=== PATIENT | female | born 1950 | race Caucasian/White ===

== ENCOUNTER 2023-03-22 14:11 | Inpatient (IN) ==
[2023-03-22] MEDS ORDERED: IOPAMIDOL 100 ML BOTTLE IV ONE (14:12)
[2023-03-22] MEDS ORDERED: IPRATROPIUM/ALBUTEROL 3 ML AMPUL.NEB NEB ONE (14:25)
[2023-03-22 15:07] LABS: Basophils # (Auto) 0.01 K/mcL (0.00-0.30); Basophils % (Auto) 0.2 % (0.0-2.0); Eosinophils # (Auto) 0.01 K/mcL (0.00-0.70); Eosinophils % (Auto) 0.2 % (0.0-7.0); Hematocrit 42.7 % (34.1-44.9); Hemoglobin 13.9 g/dL (11.2-15.7); Lymphocytes # (Auto) 0.68 K/mcL (1.50-4.80); Lymphocytes % (Auto) 10.6 % (15.5-49.0); Mean Cell Volume 100.2 fL (80.0-100.0); Mean Corpuscular HGB Conc 32.6 g/dL (31.0-36.0); Mean Platelet Volume 10.2 fL (8.8-12.5); Monocytes # (Auto) 0.12 K/mcL (0.10-0.90); Monocytes % (Auto) 1.9 % (1.0-12.0); Neutrophils % (Auto) 86.2 % (38.0-78.0); Platelet Count 291 K/mcL (140-440); RBC 4.26 M/mcL (3.59-5.38); Red Cell Distribution Width 13.6 % (11.5-14.5); WBC 6.4 K/mcL (4.5-11.0)
[2023-03-22] MEDS ORDERED: ALBUTEROL SULFATE 2.5 MG/3 ML NEBULIZER NEB ONE (16:02)
[2023-03-22] MEDS ORDERED: methylPREDNISolone SOD SUCC 125 MG/2 ML VIAL IV ONE (16:02)
[2023-03-22 16:38] LABS: proBNP 113.4 pg/mL (<125.0)
[2023-03-22 17:10] LABS: ALT/SGPT 43 U/L (<40); AST/SGOT 31 U/L (<32); Albumin 4.1 gm/dL (3.2-5.2); Albumin/Globulin Ratio 1.5 (1.0-2.3); Alkaline Phosphatase 86 U/L (39-117); Bilirubin,Total 0.2 mg/dL (0.1-1.0); Blood Urea Nitrogen 41 mg/dL (8-23); Calcium 10.6 mg/dL (8.6-10.4); Carbon Dioxide 22 mmol/L (22-30); Chloride 98 mmol/L (96-108); Globulin 2.8 gm/dL (2.2-3.7); Glomerular Filtration Rate 85; Glucose 197 mg/dL (70-105)
[2023-03-22] MEDS ORDERED: LEVOFLOXACIN 750 MG/150 ML BAG IV ONE (18:10)
[2023-03-22] MEDS ORDERED: METOPROLOL TARTRATE 5 MG/5 ML VIAL IV ONE (18:29)
[2023-03-22] MEDS ORDERED: ACETAMINOPHEN 325 MG TABLET PO PRN (19:37)
[2023-03-22] MEDS ORDERED: VANCOMYCIN PER PHARMACY IV SCH (19:37)
[2023-03-22] MEDS ORDERED: HYDROcodone/APAP 5/325MG TABLET PO PRN (19:37)
[2023-03-22] MEDS ORDERED: METOPROLOL TARTRATE 5 MG/5 ML VIAL IV PRN (19:37)
[2023-03-22] MEDS ORDERED: SENNOSIDES 1 TABLET PO PRN (19:37)
[2023-03-22] MEDS ORDERED: ONDANSETRON 4 MG/2 ML VIAL IV PRN (19:37)
[2023-03-22] MEDS ORDERED: guaiFENesin/DEXTROMETHORPHAN 5ML UD CUP PO PRN (19:37)
[2023-03-22] MEDS ORDERED: morphine 2 MG/ML VIAL IV PRN (19:37)
[2023-03-22] MEDS ORDERED: LACTULOSE 20 GM/30 ML ORAL.SOL PO PRN (19:37)
[2023-03-22] MEDS ORDERED: PROCHLORPERAZINE 10 MG TABLET PO PRN (19:54)
[2023-03-22] MEDS ORDERED: PROCHLORPERAZINE 10 MG/2 ML VIAL IV PRN (19:57)
[2023-03-22] MEDS: 0.9 % SODIUM CHLORIDE 1,000 ML IV SCH (20:14)
[2023-03-22] MEDS: HYDROcodone/APAP 5/325MG TABLET PO PRN (20:14)
[2023-03-22] MEDS ORDERED: VANCOMYCIN 1,000 MG in 0.9 % SODIUM CHLORIDE 250 ML IV SCH (21:00)
[2023-03-22] MEDS: APIXABAN 2.5 MG TABLET PO SCH (21:10)
[2023-03-22] MEDS: PREGABALIN 150 MG CAPSULE PO SCH (21:10)
[2023-03-22] MEDS: DOCUSATE SODIUM 100 MG CAPSULE PO SCH (21:11)
[2023-03-22] MEDS: METOPROLOL TARTRATE 25 MG TABLET PO SCH (21:11)
[2023-03-22] MEDS: MEROPENEM 1 GM in 0.9 % SODIUM CHLORIDE 50 ML IV SCH (22:00)
[2023-03-22] MEDS: 0.9 % SODIUM CHLORIDE 10 ML SYRINGE IV SCH (22:57)
[2023-03-23] MEDS: HYDROcodone/APAP 5/325MG TABLET PO PRN ×2 (03:04→19:45)
[2023-03-23 04:30] LABS: Basophils # (Auto) 0 K/mcL (0.00-0.30); Basophils % (Auto) 0 % (0.0-2.0); Eosinophils # (Auto) 0 K/mcL (0.00-0.70); Eosinophils % (Auto) 0 % (0.0-7.0); Hematocrit 34.7 % (34.1-44.9); Hemoglobin 11.4 g/dL (11.2-15.7); Lymphocytes # (Auto) 0.62 K/mcL (1.50-4.80); Lymphocytes % (Auto) 7.7 % (15.5-49.0); Mean Cell Volume 101.5 fL (80.0-100.0); Mean Corpuscular HGB Conc 32.9 g/dL (31.0-36.0); Mean Platelet Volume 10.1 fL (8.8-12.5); Monocytes # (Auto) 0.36 K/mcL (0.10-0.90); Monocytes % (Auto) 4.5 % (1.0-12.0); Neutrophils % (Auto) 87.3 % (38.0-78.0); Platelet Count 215 K/mcL (140-440); RBC 3.42 M/mcL (3.59-5.38); Red Cell Distribution Width 13.6 % (11.5-14.5)
[2023-03-23 04:42] LABS: ALT/SGPT 32 U/L (<40); AST/SGOT 25 U/L (<32); Albumin 3.4 gm/dL (3.2-5.2); Albumin/Globulin Ratio 1.5 (1.0-2.3); Alkaline Phosphatase 66 U/L (39-117); Bilirubin,Total < 0.2 mg/dL (0.1-1.0); Blood Urea Nitrogen 28 mg/dL (8-23); Calcium 9.5 mg/dL (8.6-10.4); Carbon Dioxide 26 mmol/L (22-30); Chloride 103 mmol/L (96-108); Globulin 2.2 gm/dL (2.2-3.7); Glomerular Filtration Rate 95; Glucose 143 mg/dL (70-105)
[2023-03-23] MEDS: MEROPENEM 1 GM in 0.9 % SODIUM CHLORIDE 50 ML IV SCH ×3 (05:35→21:11)
[2023-03-23] MEDS: 0.9 % SODIUM CHLORIDE 10 ML SYRINGE IV SCH ×3 (05:36→21:12)
[2023-03-23] MEDS: LEVOTHYROXINE 100 MCG TABLET PO SCH (08:23)
[2023-03-23] MEDS: PREGABALIN 150 MG CAPSULE PO SCH ×2 (08:23→21:11)
[2023-03-23] MEDS: 0.9 % SODIUM CHLORIDE 1,000 ML IV SCH (08:23)
[2023-03-23] MEDS: predniSONE 10 MG TABLET PO SCH (08:24)
[2023-03-23] MEDS: APIXABAN 2.5 MG TABLET PO SCH ×2 (08:24→21:11)
[2023-03-23] MEDS: METOPROLOL TARTRATE 25 MG TABLET PO SCH ×2 (08:24→21:11)
[2023-03-23] MEDS: DOCUSATE SODIUM 100 MG CAPSULE PO SCH ×3 (08:24→21:18)
[2023-03-23] MEDS: PANTOPRAZOLE 40 MG TABLET PO SCH (08:24)
[2023-03-23] MEDS: MEGESTROL ACETATE 400 MG/10 ML UDC PO SCH (11:55)
[2023-03-23] MEDS: LIDOCAINE 4% TOP PATCH TOPICAL SCH (11:55)
[2023-03-23] MEDS ORDERED: hydrALAZINE 20 MG/ML VIAL IV PRN (14:33)
[2023-03-23] MEDS: IPRATROPIUM/ALBUTEROL 3 ML AMPUL.NEB NEB PRN ×2 (18:40→21:49)
[2023-03-24] MEDS: MEROPENEM 1 GM in 0.9 % SODIUM CHLORIDE 50 ML IV SCH ×3 (05:58→21:44)
[2023-03-24] MEDS: 0.9 % SODIUM CHLORIDE 10 ML SYRINGE IV SCH ×4 (05:58→21:44)
[2023-03-24] MEDS: PANTOPRAZOLE 40 MG TABLET PO SCH (07:28)
[2023-03-24] MEDS: IPRATROPIUM/ALBUTEROL 3 ML AMPUL.NEB NEB PRN ×4 (07:57→20:28)
[2023-03-24] MEDS: APIXABAN 2.5 MG TABLET PO SCH ×2 (09:04→20:46)
[2023-03-24] MEDS: PREGABALIN 150 MG CAPSULE PO SCH ×2 (09:04→20:46)
[2023-03-24] MEDS: MEGESTROL ACETATE 400 MG/10 ML UDC PO SCH (09:04)
[2023-03-24] MEDS: LEVOTHYROXINE 100 MCG TABLET PO SCH (09:04)
[2023-03-24] MEDS: predniSONE 10 MG TABLET PO SCH (09:04)
[2023-03-24] MEDS: METOPROLOL TARTRATE 50 MG TABLET PO SCH ×2 (09:04→20:46)
[2023-03-24] MEDS: DOCUSATE SODIUM 100 MG CAPSULE PO SCH ×2 (09:05→20:47)
[2023-03-24] MEDS: HYDROcodone/APAP 5/325MG TABLET PO PRN ×3 (10:36→22:36)
[2023-03-24] MEDS: LIDOCAINE 4% TOP PATCH TOPICAL SCH (10:37)
[2023-03-24] MEDS ORDERED: FUROSEMIDE 20 MG/2 ML VIAL IV ONE (10:39)
[2023-03-25] MEDS: MEROPENEM 1 GM in 0.9 % SODIUM CHLORIDE 50 ML IV SCH ×2 (05:40→13:33)
[2023-03-25] MEDS: 0.9 % SODIUM CHLORIDE 10 ML SYRINGE IV SCH ×3 (05:55→12:40)
[2023-03-25 07:02] LABS: ALT/SGPT 23 U/L (<40); AST/SGOT 20 U/L (<32); Albumin 2.8 gm/dL (3.2-5.2); Albumin/Globulin Ratio 1.5 (1.0-2.3); Alkaline Phosphatase 55 U/L (39-117); Bilirubin,Direct < 0.2 mg/dL (0-0.3); Bilirubin,Total < 0.2 mg/dL (0.1-1.0); Blood Urea Nitrogen 15 mg/dL (8-23); Calcium 7.8 mg/dL (8.6-10.4); Carbon Dioxide 24 mmol/L (22-30); Chloride 111 mmol/L (96-108); Globulin 1.9 gm/dL (2.2-3.7); Glomerular Filtration Rate 102; Glucose 78 mg/dL (70-105); Lactate Dehydrogenase 246 U/L (135-225); Phosphorous 1.6 mg/dL (2.5-4.5); Triglycerides 121 mg/dL (<150); Uric Acid 5.3 mg/dL (2.5-8.0)
[2023-03-25] MEDS: PANTOPRAZOLE 40 MG TABLET PO SCH (07:56)
[2023-03-25] MEDS ORDERED: POTASSIUM CHLORIDE 20 MEQ TABLET PO ONE (08:07)
[2023-03-25] MEDS: predniSONE 10 MG TABLET PO SCH (08:57)
[2023-03-25] MEDS: PREGABALIN 150 MG CAPSULE PO SCH (08:57)
[2023-03-25] MEDS: METOPROLOL TARTRATE 50 MG TABLET PO SCH (08:57)
[2023-03-25] MEDS: LEVOTHYROXINE 100 MCG TABLET PO SCH (08:58)
[2023-03-25] MEDS: MEGESTROL ACETATE 400 MG/10 ML UDC PO SCH (08:58)
[2023-03-25] MEDS: APIXABAN 2.5 MG TABLET PO SCH (08:58)
[2023-03-25] MEDS ORDERED: NEUTRA PHOS 1 PACKET PO SCH (09:00)
[2023-03-25] MEDS ORDERED: PHOSPHORUS 250 MG TABLET PO SCH (09:00)
[2023-03-25] MEDS: DOCUSATE SODIUM 100 MG CAPSULE PO SCH (09:17)
[2023-03-25] MEDS: IPRATROPIUM/ALBUTEROL 3 ML AMPUL.NEB NEB PRN (10:12)
[2023-03-25] MEDS: LIDOCAINE 4% TOP PATCH TOPICAL SCH (10:44)
[2023-03-25] MEDS ORDERED: ALBUMIN HUMAN 12.5 GM/50 ML VIAL IV ONE (11:43)
[2023-03-25] MEDS ORDERED: FUROSEMIDE 40 MG/4 ML VIAL IV ONE (11:43)
== END 2023-03-25 14:30 | DRG 205 ==
LOC: ED 14:11 → ICU 19:35 → MEDSUR 03-23 13:40
PROVIDERS: ADMIT Internal Medicine; ATTEND Internal Medicine